=== PATIENT | female | born 2000 | race Caucasian/White ===

== ENCOUNTER → 2020-01-08 13:10 | Outpatient (CLI) | payer BC, SELFPAY | PROVIDERS: PCP Family Medicine; Visit Provider Family Medicine | DX: J02.9 Acute pharyngitis, unspecified (principal) | CPT/HCPCS: 87070 ==

== ENCOUNTER 2023-09-29 16:32 | Emergency (ER) | payer OTHER, SELFPAY ==
[2023-09-29] VITALS (8 sets, daily range): BP systolic 110–135; BP diastolic 70–91; PULSE 66–91; RESP 16; O2SAT 97–99; BMI 27.4
--- NOTE | 2023-09-29 16:45 | PC.NURSE ---
Wound irrigated w NS and hibiclens soaked gauze
--- NOTE | 2023-09-29 19:27 | ED.HEATRA ---
HPI - Head Injury General Chief complaint: Head Injury Stated complaint: Fall, hit head, bleeding Time Seen by Provider: 09/29/23 17:12 Source: patient Mode of arrival: Ambulatory History of Present Illness HPI Narrative: 23-year-old female presents for evaluation after head injury. Patient was at work and slipped in some water, striking the right side of her head against a sink. Related Data Home Medications Medication Instructions Recorded Confirmed No Known Home Medications 01/08/20 01/08/20 Allergies Allergy/AdvReac Type Severity Reaction Status Date / Time No Known Drug Allergies Allergy Verified 09/29/23 16:51 Patient History Medical History (Updated 09/29/23 @ 19:37 by Katherin Velasco MD) URI (upper respiratory infection) Social History Smoking Status: Never smoker Smoking Status: Never smoker alcohol intake frequency: a few times a week Substance Use Type: does not use Exam Initial Vital Signs Initial Vital Signs: Vital Signs Pulse Rate 86 09/29/23 16:48 Respiratory Rate 16 09/29/23 16:48 Blood Pressure 135/84 09/29/23 16:48 Pulse Oximetry 99 09/29/23 16:48 Oxygen Delivery Method Room Air 09/29/23 16:48 Const: Awake, alert, no acute distress, nontoxic appearing HEENT: Right scalp laceration. TM normal Skin: 2 cm vertical laceration right scalp Neuro: AO x3, CN II-XII grossly intact, moves all extremities Procedures Laceration Repair Laceration 1: Site: scalp Side (If applicable): right Size (cm): 2 Description: linear Depth: simple, single layer Pre-repair: wound explored and irrigated extensively Skin layer closed with: other Number of sutures: 4 Course Orders Ordered: Discontinued Medications Acetaminophen (Acetaminophen 325 Mg Tablet) 975 mg PO NOW ONE Stop: 09/29/23 19:29 Vital Signs Vital signs: Vital Signs - 8 hr 09/29/23 16:48 Pulse Rate 86 Respiratory Rate 16 Blood Pressure 135/84 Pulse Oximetry 99 Oxygen Delivery Method Room Air MDM - Head Injury MDM Narrative Medical decision making narrative: Scalp laceration. No indication for advanced imaging at this time. Four sumi placed in laceration with hemostasis. L and I form filled out Discharge Plan Departure Patient Disposition: Home Clinical Impression: Laceration of scalp Instructions: DI for Laceration Repair -- Sumi Activity Restrictions/Additional Instructions: You may take Tylenol and ibuprofen as needed for discomfort. Apply ice to swelling. [place] need to be taken out in 10 days. Prescriptions: No Action No Known Home Medications Referrals: Miscellaneous,Doctor, MD [Primary Care Provider] - Stand Alone Forms: Patient Portal/API
[2023-09-29] MEDS: ACETAMINOPHEN 325 MG TABLET 975 MG PO (19:38)
== END 2023-09-29 19:44 | disposition home or self-care (01) ==
PROVIDERS: Emergency Provider Emergency Medicine
DX: S01.01XA Laceration without foreign body of scalp, initial encounter (principal); W01.198A Fall on same level from slipping, tripping and stumbling with subsequent striking against other object, initial encounter; Y99.0 Civilian activity done for income or pay
CPT/HCPCS: 12001; 99283